=== PATIENT | female | born 1980 | race Two or more races ===

== ENCOUNTER 2024-01-21 23:09 | Emergency (ER) | payer OTHER ==
[~2024-01-21] VITALS: Ht 162.6 cm; Wt 132.4 kg
[2024-01-22] MEDS ORDERED: GUAIFENESIN 200 MG/10 ML BLIST.PACK PO STA (00:15)
[2024-01-22] MEDS ORDERED: METHYLPREDNISOLONE SOD SUCC 125 MG VIAL IV STA (00:16)
[2024-01-22] MEDS ORDERED: ALBUTEROL SULFATE 3 ML/2.5 MG AMPUL.NEB IH SCH (00:30)
[2024-01-22 00:46] LABS: HEMATOCRIT 36.2 % (36.0-45.00); HEMOGLOBIN 12.1 g/dL (12.0-15.00); MEAN CELL VOLUME 86.2 fL (80.00-100.00); MEAN CORPUSCULAR HEMOGLOBIN 28.8 pg (27.00-32.0); MEAN CORPUSCULAR HGB CONC 33.4 g/dl (32.0-36.0); PLATELET COUNT 223 K/uL (150-450); RED CELL DISTRIBUTION WIDTH 14.2 % (11.5-14.5)
[2024-01-22] MEDS ORDERED: VENTOLIN HFA18 GM IH (03:12)
[2024-01-22] MEDS ORDERED: ZYNCOF 20-400120 ML PO (03:12)
[2024-01-22] MEDS ORDERED: SINGULAIR10 MG PO (03:12)
[2024-01-22] MEDS ORDERED: ALBUTEROL2.5 MG/3 M IH (03:12)
[2024-01-22] MEDS ORDERED: SYMBICORT 16010.2 GM IH (03:12)
[2024-01-22] MEDS ORDERED: PAXLOVID 150-11 EAC1 PO (03:22)
== END 2024-01-22 03:24 ==
LOC: ER 23:10
PROVIDERS: General Practice
DX: U07.1 COVID-19 (principal); R05.9 Cough, unspecified; I10 Essential (primary) hypertension; E11.9 Type 2 diabetes mellitus without complications; Z88.0 Allergy status to penicillin; Z88.6 Allergy status to analgesic agent

== ENCOUNTER 2025-02-18 02:44 | Emergency (ER) | payer OTHER ==
[~2025-02-18] VITALS: Ht 162.6 cm; Wt 120.2 kg
[~2025-02-18 02:44] MED LIST: ALBUTEROL2.5 MG/3 M IH; PAXLOVID 150-11 EAC1 PO; SINGULAIR10 MG PO; SYMBICORT 16010.2 GM IH; VENTOLIN HFA18 GM IH; ZYNCOF 20-400120 ML PO
[2025-02-18] MEDS ORDERED: METFORMIN HCL500 M3 (03:04)
[2025-02-18] MEDS ORDERED: 0.9 % SODIUM CHLORIDE 1,000 ML IV STA (03:41)
[2025-02-18] MEDS ORDERED: MORPHINE SULFATE 4 MG/ML VIAL IV STA (03:42)
[2025-02-18] MEDS ORDERED: HYOSCYAMINE SULFATE 0.125 MG TAB.SUBL SL ONE (03:45)
[2025-02-18] MEDS ORDERED: HYOSCYAMINE SULFATE 0.125 MG TAB.SUBL ONE (03:55)
[2025-02-18 04:35] LABS: BASO % 0.3 % (0.1-1.2); EOS # 0.14 (0.04-0.54); EOS % 1.3 % (0.7-7.0); LYMPH # 1.46 (1.18-3.74); LYMPH % 13.5 % (19.3-53.1); MEAN PLATELET VOLUME 10.70 fl (9.4-12.4); MONO # 0.53 (0.24-0.82); MONO % 4.9 % (4.7-12.5); NEUT # 8.61 (1.56-6.13); NEUT % 79.8 % (34.0-71.1); RED CELL DISTRIBUTION WIDTH 12.9 % (11.6-14.4)
[2025-02-18 04:58] LABS: ALT/SGPT 23.0 U/L (12-78); AST/SGOT 14.0 U/L (15-37); BILIRUBIN TOTAL 0.81 mg/dL (0.3-1.2); BUN CREA RATIO 15.0 (7.0-25.0); CREATININE SERUM 0.81 mg/dL (0.55-1.02); GFR 76.46; GLOBULINA 4.2 G/DL (2.4-3.5); GLUCOSE FASTING 137.0 mg/dL (65-100); OSMOLALITY SERUM 279.0 MOSM/KG (275-295)
[2025-02-18 06:24] LABS: URINE APPEARANCE Turbid; URINE BILIRRUBIN Negative (NEGATIVE); URINE BLOOD Large; URINE COLOR Yellow; URINE GLUCOSE Negative (NEGATIVE); URINE KETONE 15 (NEGATIVE); URINE LEUKOCYTE Trace; URINE NITRATE Negative; URINE UROBILINOGEN 0.2 E.U./dl
[2025-02-18 06:28] LABS: URINE BACTERIA 2625.5 uL (0.0-1933); URINE EPITHELIAL CELLS 54.9 uL (0.0-38.8); URINE RBC 173.6 uL (0.0-20.8); URINE WBC 52.1 uL (0.0-23.2)
[2025-02-18 06:46] LABS: URINE CAST 0.87 uL (0.0-1.40); URINE PROTEIN 100 (NEGATIVE)
[2025-02-18] MEDS ORDERED: TRAMADOL HCL 50 MG TABLET PO STA (06:58)
== END 2025-02-18 08:20 | disposition home or self-care (01) ==
LOC: ER 02:44
DX: N20.1 Calculus of ureter (principal); R16.0 Hepatomegaly, not elsewhere classified; K76.0 Fatty (change of) liver, not elsewhere classified; Z88.6 Allergy status to analgesic agent; Z88.0 Allergy status to penicillin